=== PATIENT | female | born 1950 | race Caucasian/White ===

== ENCOUNTER → 2017-02-24 | Outpatient (CLI) | payer OTHER ==
[~2017-02-24] MED LIST: BENADRYL25 MG PO; CALTRATE 6001 TABLE1 PO; CALTRATE PLUS1 EACH PO; CENTRUM SILVER1 EAC3 PO; CENTRUM SILVER1 EAC4 PO; CIPRO500 MG PO; EXTRA STRENGTH500 M1 PO; FLAGYL500 MG PO; LISINOPRIL10 MG PO; LOMOTIL TABLET1 EACH PO; METOPROLOL TART50 MG PO; OMEGA-3 KRILL1 EACH PO; PEPCID40 MG PO; PREDNISONE20 MG PO; PRILOSEC40 MG PO; PRINIVIL20 MG PO; ZOFRAN ODT4 MG PO; ZOFRAN4 MG PO
== END | disposition home or self-care (01) ==
LOC: CDC 12:30
DX: Z01.810 Encounter for preprocedural cardiovascular examination (principal); I45.4 Nonspecific intraventricular block; R94.31 Abnormal electrocardiogram [ECG] [EKG]
CPT/HCPCS: 93000

== ENCOUNTER 2017-03-01 10:05 | Day surgery (SDC) | payer OTHER ==
[~2017-03-01] VITALS: Ht 172.7 cm; Wt 95.5 kg
[2017-03-01 10:23] VITALS: BP 145/67
[2017-03-01 16:27] VITALS: BP 155/67
[2017-03-01 19:42] VITALS: BP 150/70
[2017-03-01 23:22] VITALS: BP 138/65
[2017-03-02 03:27] VITALS: BP 126/60
[2017-03-02 06:53] LABS: HEMATOCRIT 40.2 % (36.0-46.0); MCH 29.1 PG (29.0-34.0); MCHC 33.8 G/DL (30.0-36.0); MCV 86.1 FL (83-99); PLATELET COUNT 231 K/uL (156-360); RBC DIS.WIDTH-CV 13.2 % (11.8-14.6); RBC DIS.WIDTH-SD 41.3 % (39-53); RED BLOOD COUNT 4.67 M/uL (3.80-5.20)
[2017-03-02 07:05] VITALS: BP 128/59
[2017-03-02 07:15] LABS: ANION GAP 12 MEQ/L (2-14); CHLORIDE 105 MEQ/L (99-109); GFR ESTIMATE (CALCULATED) > 59 mL/min/; GLUCOSE 101 mg/dL (70-99); POTASSIUM 4.1 MEQ/L (3.7-5.4); SAMPLE HEMOLYSIS CHECK 0; SAMPLE ICTERIC CHECK 0; SAMPLE LIPEMIA CHECK 0; SODIUM 142 MEQ/L (136-147); UREA NITROGEN (BUN) 8 mg/dL (9-23)
== END 2017-03-02 08:01 | disposition home or self-care (01) ==
LOC: SDC 10:05 → 2SOUTH 14:30 → ENRESERV 14:53 → 2EAST 16:27
PROVIDERS: Obstetrics & Gynecology
DX: N84.1 Polyp of cervix uteri (principal); N83.8 Other noninflammatory disorders of ovary, fallopian tube and broad ligament; D27.1 Benign neoplasm of left ovary; D27.0 Benign neoplasm of right ovary; I10 Essential (primary) hypertension; E66.9 Obesity, unspecified; Z68.33 Body mass index [BMI] 33.0-33.9, adult; F17.200 Nicotine dependence, unspecified, uncomplicated; Z80.1 Family history of malignant neoplasm of trachea, bronchus and lung; Z80.0 Family history of malignant neoplasm of digestive organs; Z88.6 Allergy status to analgesic agent
CPT/HCPCS: 80048; 85027; 88307; G0378; J0690; J1100; J1170; J2250; J2405; J2704; J2710; J3010; J3475; J7120; S0020

== ENCOUNTER 2017-07-13 07:20 | Emergency (ER) | payer OTHER ==
[~2017-07-13] VITALS: Ht 172.7 cm; Wt 104.0 kg
[2017-07-13 07:55] LABS: BASOPHIL (%) 0.5 % (0-1); EOSINOPHIL (%) 1.9 % (0-5); EOSINOPHIL COUNT 0.1 K/uL (0-0.3); HEMATOCRIT 39.7 % (36.0-46.0); HEMOGLOBIN 13.9 G/DL (11.9-15.5); IMMATURE GRANULOCYTE (%) 0.4 % (0.0-0.7); LYMPHOCYTE (%) 24.5 % (15-42); LYMPHOCYTE COUNT 1.8 K/uL (1.0-2.8); MCH 29.6 PG (29.0-34.0); MCV 84.5 FL (83-99); MONOCYTE (%) 4.3 % (3-12); MONOCYTE COUNT 0.3 K/uL (0-0.8); NEUTROPHIL (%) 68.4 % (45-76); NEUTROPHIL COUNT 5.1 K/uL (1.8-6.4); PLATELET COUNT 181 K/uL (156-360); RBC DIS.WIDTH-CV 13.2 % (11.8-14.6); RBC DIS.WIDTH-SD 41.2 % (39-53); WHITE BLOOD COUNT 7.4 K/uL (4.1-10.2)
[2017-07-13 08:00] LABS: INTER. NORMALIZED RATIO 0.9
[2017-07-13 08:02] LABS: PTT 27.8 SEC (25-37)
[2017-07-13 08:13] LABS: CHLORIDE 108 mEq/L (99-109); SODIUM 144 mEq/L (136-147)
[2017-07-13 08:14] LABS: GLUCOSE 116 mg/dL (70-99)
[2017-07-13 08:18] LABS: CREATININE 0.9 mg/dL (0.6-1.3); GFR ESTIMATE (CALCULATED) > 59 mL/min/
[2017-07-13 08:19] LABS: UREA NITROGEN (BUN) 14 mg/dL (9-23)
[2017-07-13 08:31] LABS: TROP-I INTERPRETATION NEGATIVE; TROPONIN-I < 0.01 ng/mL (0.0-0.30)
[2017-07-13 12:17] VITALS: BP 134/57
== END 2017-07-13 12:50 | disposition home or self-care (01) ==
LOC: EME 07:20
PROVIDERS: Emergency Medicine
DX: R20.0 Anesthesia of skin (principal); R20.2 Paresthesia of skin; F17.200 Nicotine dependence, unspecified, uncomplicated; Z88.6 Allergy status to analgesic agent; Z88.1 Allergy status to other antibiotic agents
CPT/HCPCS: 70450; 70551; 71045; 80048; 84484; 85025; 85610; 85730; 93005; 99281; 99285; J2060